=== PATIENT | male | born 1975 | race Caucasian/White ===

== ENCOUNTER → 2022-01-29 | Outpatient (CLI) | payer OTHER | LOC: HEART CORB 10:34 | DX: R00.2 Palpitations (principal); I49.3 Ventricular premature depolarization ==

== ENCOUNTER → 2022-04-06 | Outpatient (CLI) | payer OTHER | LOC: HEART CORB 08:30 | DX: I10 Essential (primary) hypertension (principal); I49.3 Ventricular premature depolarization; R00.2 Palpitations; R07.89 Other chest pain ==

== ENCOUNTER → 2022-06-11 | Outpatient (CLI) | payer OTHER | LOC: HEART CORB 10:30 | DX: R07.9 Chest pain, unspecified (principal) ==